=== PATIENT | female | born 1965 | race African-American/Black ===

== ENCOUNTER 2022-10-11 10:22 | Outpatient (CLI) | payer OTHER | END 2022-10-11 19:09 | disposition home or self-care (01) | LOC: RAD 10:22 | PROVIDERS: ATTEND Internal Medicine | DX: S33.5XXA Sprain of ligaments of lumbar spine, initial encounter (principal); R05.1 Acute cough; M89.8X1 Other specified disorders of bone, shoulder; Y92.89 Other specified places as the place of occurrence of the external cause ==

== ENCOUNTER 2022-11-22 14:31 | Outpatient (CLI) | payer OTHER | END 2022-11-22 20:34 | disposition home or self-care (01) | LOC: MRI 14:31 | PROVIDERS: ATTEND Internal Medicine | DX: R51.9 Headache, unspecified (principal) | CPT/HCPCS: 36415; 82565; 84520; A9576 ==